=== PATIENT | male | born 1995 | race Caucasian/White ===

== ENCOUNTER 2019-11-08 18:12 | Emergency (ER) | payer BC, OTHER ==
[~2019-11-08] VITALS: Ht 185.4 cm; Wt 108.0 kg
[2019-11-08 18:16] VITALS: BP 154/91
--- NOTE | 2019-11-08 18:20 | NUR ---
PT AMBULATED TO LOBBY WITH STEADY GAIT
--- NOTE | 2019-11-08 19:30 | NUR ---
PT C/O NOSEBLEED AND COUGH THAT STARTED TODAY. AAO X 4, GCS 15, AMBULATORY WITH STEADY GAIT. RESPIRATION EVEN AND UNLABORED, BL LUNG CLEAR. SKI WARM/PINK/DRY, +PMSC. VS WNL, NO ACUTE DISTRESS AT THIS TIME. WILL CONTINUE TO MONITOR
--- NOTE | 2019-11-08 20:10 | NUR ---
PA JAROD WITH PT
--- NOTE | 2019-11-08 20:20 | NUR ---
PT TAKEN TO XRAY
--- NOTE | 2019-11-08 21:04 | NUR ---
Patient discharged with v/s stable. Written and verbal after care instructions given and explained. Patient alert, oriented and verbalized understanding of instructions. Ambulatory with steady gait. All questions addressed prior to discharge. ID band removed. Patient advised to follow up with PMD. Rx of MOTRIN, FLONASE given. Patient educated on indication of medication including possible reaction and side effects. Opportunity to ask questions provided and answered.
[2019-11-08 21:05] VITALS: BP 145/85
== END 2019-11-08 21:04 | disposition home or self-care (01) ==
LOC: MED 18:12
DX: J06.9 Acute upper respiratory infection, unspecified (principal)
CPT/HCPCS: 71045; 99283